=== PATIENT | male | born 1960 | race Caucasian/White ===

== ENCOUNTER 2019-07-10 15:15 | Outpatient (CLI) | payer MEDICARE, BC, SELFPAY ==
--- NOTE | 2019-07-10 | MR_ITS ---
WS: [id number] MRI LEFT KNEE NONCONTRAST TECHNIQUE: Axial PD, coronal PD fat sat, coronal PD, sagittal PD, and sagittal PD fat-sat images obta ined. CLINICAL INFORMATION: ACUTE MENISCAL TEAR OF LT KNEE COMPARISON: Radiograph June 28, 2019 FINDINGS: Irregularity and laxity involving the ACL with edema along the tibial tunnel suspicious for ACL strai n. ACL appears slightly thickened but intact. No significant intrasubstance signal abnormalities in t he ACL. PCL is normal. Small suprapatellar effusion. Prepatellar soft tissue edema. No acute patellar fractures. Lateral meniscus is normal. Complex tear involving the posterior horn medial meniscus extending to th e articular surface with edema. This has an acute appearance with surrounding perimeniscal edema in t he soft tissues. Mild blunting of the posterior horn. Anterior horn appears intact. Edema consistent with diffuse contusion involving the anterior medial tibial plateau. Diffuse edema along the medial collateral ligament and popliteus. MCL appears grossly intact. Normal patella. Sligh tly hypertrophic patella. Mild chondromalacia patella. Moderate joint space narrowing involving the m edial joint compartment with moderate chondromalacia. Lateral compartment is better preserved. MR/MR knee LT wo con* [id number] IMPRESSION: 1. Mild thickening of the ACL which appears grossly intact with surrounding ed naun along the tibial tunnel consistent with ACL strain. No intrasubstance signa l abnormality. 2. PCL is intact. 3. Complex tear involving the posterior horn medial meniscus extending to the articular surface with surrounding edema consistent with acute tear. 4. Grade one injury involving the medial collateral ligament with surrounding edema. MCL fibers appear grossly intact. 5. Diffuse edema along the medial tibial plateau extending to the articular perry rface consistent with bony contusion. 6. Slightly hypertrophic patella with a small suprapatellar effusion.
== END 2019-07-10 15:16 | disposition home or self-care (01) ==
LOC: RADSHAW 15:26
PROVIDERS: Family Provider Family Medicine; PCP Family Medicine; Visit Provider Family Medicine
DX: S83.242A Other tear of medial meniscus, current injury, left knee, initial encounter (principal); X58.XXXA Exposure to other specified factors, initial encounter; R60.9 Edema, unspecified
CPT/HCPCS: 73721

== ENCOUNTER 2020-12-08 11:20 | Outpatient (RCR) | payer MEDICARE, SELFPAY | END 2021-01-04 23:59 | disposition home or self-care (01) | LOC: SPT 11:20 | PROVIDERS: Family Provider Family Medicine; PCP Family Medicine; Referring Provider Orthopaedic Surgery; Visit Provider Orthopaedic Surgery | DX: Z96.651 Presence of right artificial knee joint (principal) | CPT/HCPCS: 97110; 97161 ==

== ENCOUNTER 2023-02-04 06:00 | Outpatient (RCR) | payer MEDICARE, SELFPAY | END 2023-03-06 23:59 | disposition home or self-care (01) | LOC: SPT 06:00 | PROVIDERS: Visit Provider Orthopaedic Surgery | DX: Z47.1 Aftercare following joint replacement surgery (principal); Z96.652 Presence of left artificial knee joint | CPT/HCPCS: 97110; 97161; G0283 ==

== ENCOUNTER 2023-03-07 06:00 | Outpatient (RCR) | payer MEDICARE, SELFPAY | END 2023-04-06 23:59 | disposition home or self-care (01) | LOC: SPT 06:00 | PROVIDERS: Visit Provider Orthopaedic Surgery | DX: Z47.1 Aftercare following joint replacement surgery (principal); Z96.652 Presence of left artificial knee joint | CPT/HCPCS: 97110; G0283 ==

== ENCOUNTER → 2024-11-15 10:11 | Outpatient (BNVA) | payer MEDICARE, SELFPAY | PROVIDERS: Visit Provider Podiatrist Foot & Ankle Surgery | DX: M72.2 Plantar fascial fibromatosis (principal); M79.671 Pain in right foot; G89.29 Other chronic pain | CPT/HCPCS: 20550; 99203; J1100; J3301; J3490 ==

== ENCOUNTER → 2025-01-07 07:49 | Outpatient (BNVA) | payer MEDICARE, SELFPAY | PROVIDERS: PCP Family Medicine; Visit Provider Orthopaedic Surgery | DX: M19.021 Primary osteoarthritis, right elbow (principal) | CPT/HCPCS: 73080; 99204 ==